=== PATIENT | female | born 1975 | race Caucasian/White ===

== ENCOUNTER 2022-08-21 14:11 | Emergency (ER) | payer BC, SELFPAY ==
[2022-08-21 14:20] VITALS: BP 169/113; PULSE 111; RESP 16; TEMP 36.8; O2SAT 96; BMI 49.6
--- NOTE | 2022-08-21 14:31 | CRLHL7_ITS ---
For Patients: As a result of the Century Cures Act, medical imaging exams and procedure reports are released immediately into your electronic medical record. You may view this report before your referring provider. If you have questions, please contact your health care provider. INDICATION: Abdominal pain. TECHNIQUE: CT abdomen and pelvis acquired with intravenous contrast, 137 mL of Isovue 370. Coronal and sagittal reformats. COMPARISON: None available. FINDINGS: The imaged lower chest appears unremarkable. Normal liver contour. No focal suspicious hepatic lesion. The portal and hepatic veins are patent. No biliary dilatation. Gallbladder surgically absent. The pancreas, spleen, and right adrenal are unremarkable. Left adrenal intermediate density 1.5 x 1.0 cm nodule (series 2, image 46). Asymmetrically delayed left renal enhancement. Left ureterovesical junction 4 mm calculus with moderate upstream hydronephrosis. No right-sided hydronephrosis or additional urinary calculi identified. Unremarkable urinary bladder. Anteverted uterus with IUD in place. The bowel appears normal in caliber and enhancement diffusely. No free air, free fluid, focal collection, or lymphadenopathy. Normal caliber abdominal aorta. No suspicious osseous lesion. IMPRESSION: 1. Left ureterovesical junction 4 mm calculus with moderate upstream hydronephrosis and delayed renal enhancement. 2. Left adrenal 1.5 cm intermediate density nodule is indeterminate but most likely an adenoma. Dictated by Jorge Luis Clark MD @ 08/21/2022 3:51:54 PM Please note that all CT scans at this facility use dose modulation, iterative reconstruction, and/or weight-based dosing when appropriate to reduce radiation dose to as low as reasonably achievable. Dictated by: Jorge Luis Clark MD @ 08/21/2022 15:52:00 (Electronically Signed)
--- NOTE | 2022-08-21 14:32 | ED.ABDPAIN ---
HPI - Abdominal Pain General Chief Complaint: Abdominal Pain Stated Complaint: Abdominal Pain Time Seen by Provider: 08/21/22 14:18 History of Present Illness HPI narrative: This 47-year-old woman comes in reporting sudden onset of severe pain in the left lower quadrant. This came on about a couple hours prior to arrival. She states that the pain comes and goes in waves but does not completely go away. She does not report any symptoms of dysuria or altered bowel function. She does not have a history of kidney stone or diverticulitis. Prior to this she has been in good health. She has had her gallbladder and appendix removed in the past. Related Data Previous Rx's Medication Instructions Recorded hydrocodone 5 mg-acetaminophen 325 1 tab PO Q4-6H PRN pain #20 tabs 08/21/22 mg tablet ketorolac 10 mg tablet 10 mg PO Q8H 5 days #15 tabs 08/21/22 ondansetron HCl 4 mg tablet 4 mg PO Q6H #15 tabs 08/21/22 Allergies Allergy/AdvReac Type Severity Reaction Status Date / Time doxycycline Allergy Severe Verified 08/21/22 14:53 Review of Systems Status of ROS Reports: 10 or more systems reviewed and unremarkable except as noted in History and below Narrative Constitutional: No fevers, no weight gain or loss. Eyes: No discharge. No vision changes. HENT: No congestion, no sore throat, no ear pain. Cardiovascular: No chest pain, no palpitations. Respiratory: No shortness of breath, no wheezes, no cough. Gastrointestinal: No vomiting, no diarrhea. Left lower quadrant abdominal pain with some nausea. Genitourinary: No dysuria, no hematuria. Musculoskeletal: Normal range of motion. Skin: No rashes, no pruritis. Neurological: No dizziness, weakness, sensory change, speech change. Endo/Heme/Allergies: No bruising or bleeding. No polydipsia. Pysch: no suicidality, no anxiety, no insomnia. All other systems reviewed and are negative. PFSH PFSH Social History Smoking Status: Never smoker How often do you have a drink containing alcohol: monthly or less AUDIT-C Alcohol total score: 1 Non-prescribed substance use: denies use service: No Exam Narrative: Exam Narrative: Constitutional: Well-developed, well-nourished, no acute distress. HEENT: Normocephalic, atraumatic. Neck: Normal range of motion. Nontender. Supple. Heart: Regular. No murmurs. Normal rate. Intact distal pulses. Lungs: Clear to auscultation. No chest discomfort. No wheezes, rhonchi, or rales. Abdomen: Normal bowel sounds. Tenderness in the left lower quadrant P No rebound tenderness. Genitalia: Deferred. Back: No midline tenderness. Normal range of motion. Extremities: Normal range of motion. No injury. Skin: Intact. No rash. Warm. No erythema or pallor. Neurologic: No altered sensation. No weakness. Alert and oriented. Psychiatric: No suicidality. No anxiety or depression. No insomnia. Nursing notes and vitals signs are reviewed. Const: Vital Signs, click to edit/add: Vital Signs - 24 hr 08/21/22 14:20 08/21/22 16:43 Temperature 98.2 F Pulse Rate [Right Pulse Oximeter] 111 H 103 H Respiratory Rate 16 20 Blood Pressure [Ri ght Upper Arm] 169/113 H 161/97 H Pulse Oximetry 96 98 Oxygen Delivery Me thod Room Air Course Vital Signs Vital signs: Initial Vital Signs Temperature 98.2 F 08/21/22 14:20 Temperature Source Temporal Artery Scan 08/21/22 14:20 Pulse Rate 111 H 08/21/22 14:20 Pulse Rhythm Regular 08/21/22 14:20 Respiratory Rate 16 08/21/22 14:20 Blood Pressure 169/113 H 08/21/22 14:20 Blood Pressure Mean 131 08/21/22 14:20 Pulse Oximetry 96 08/21/22 14:20 Oxygen Delivery Method Room Air 08/21/22 14:20 Vital Signs Temperature 98.2 F 08/21/22 14:20 Pulse Rate 111 H 08/21/22 14:20 Respiratory Rate 16 08/21/22 14:20 Blood Pressure 169/113 H 08/21/22 14:20 Pulse Oximetry 96 08/21/22 14:20 Oxygen Delivery Method Room Air 08/21/22 14:20 Temperature 98.2 F 08/21/22 14:20 Pulse Rate 103 H 08/21/22 16:43 Respiratory Rate 20 08/21/22 16:43 Blood Pressure 161/97 H 08/21/22 16:43 Pulse Oximetry 98 08/21/22 16:43 Oxygen Delivery Method Room Air 08/21/22 14:20 MDM - Abdominal Pain MDM Narrative Medical decision making narrative: This patient comes in with left lower quadrant pain that is severe. An IV was established where she received Dilaudid 0.5 mg and Zofran [address] imaging of the abdomen and pelvis shows evidence of a 4 mm stone at the left ureterovesical junction. Lab results are reassuring. Patient did have some recurrent pain and therefore also received Toradol 30 mg intravenously. I had discussion with the patient regarding matters of ureteral calculus and its management and prevention. She is okay to be discharged home and received prescriptions for Toradol, [place], and Zofran. Lab Data Labs: Lab Results 08/21/22 Range/Units 14:46 WBC 7.75 (4.50-11.00) K/uL RBC 4.72 (4.00-5.20) m/uL Hgb 14.5 (12.0-16.0) gm/dL Hct 43.0 (33.0-51.0) % MCV 91 (80-100) fL MCH 31 (26-34) pg MCHC 34 (32-36) gm/dL RDW Coeff of Yvonne 12.2 (11.5-15.5) % Plt Count 320 (140-440) K/uL Neut % (Auto) 60.9 (42.0-72.0) % Lymph % (Auto) 25.4 (20-44) % [place] % (Auto) 11.6 H (0.0-11.0) % Eos % (Auto) 1.2 (0.0-7.0) % Baso % (Auto) 0.5 (0.0-3.0) % Neut # (Auto) 4.72 (1.7-7.0) K/uL Lymph # (Auto) 1.97 (0.90-2.90) K/uL [place] # (Auto) 0.90 (0.00-0.90) K/UL Eos # (Auto) 0.09 (0.00-0.50) K/uL Baso # (Auto) 0.04 (0.00-0.30) K/uL Sodium 137 (135-149) mmol/L Potassium 3.8 (3.6-5.1) mmol/L Chloride 106 (96-114) mmol/L Carbon Dioxide 24 (20-32) mmol/L BUN 12 (5-24) mg/dL Creatinine 0.9 (0.5-1.5) mg/dL Estimated Creat Clear 65.30 Estimated GFR 80 ml/min Glucose 134 H (60-115) mg/dL Calcium 9.2 (8.4-10.6) mg/dL Imaging Data CT scan - abdomen: Radiologist's impression: 1. Left ureterovesical junction 4 mm calculus with moderate upstream hydronephrosis and delayed renal enhancement. 2. Left adrenal 1.5 cm intermediate density nodule is indeterminate but most likely an adenoma. Discharge Plan Discharge Clinical Impression: Calculus of kidney Patient Disposition: Home, Self-Care Condition: Improved Additional Instructions: Take medication as needed and indicated. Follow up with MD or return if worsening. Prescriptions: New hydrocodone-acetaminophen 5-325 mg tablet 1 tab PO Q4-6H PRN (Reason: pain) Qty: 20 0RF ondansetron HCl 4 mg tablet 4 mg PO Q6H Qty: 15 0RF ketorolac 10 mg tablet 10 mg PO Q8H 5 Days Qty: 15 0RF Follow Up/Referrals: Val Becker PA-C [Primary Care Provider] - Stand Alone Forms: [employer] Info Instructions
[2022-08-21] MEDS: ONDANSETRON 2 MG/ML inj 4 MG IVP (14:54)
[2022-08-21] MEDS: HYDROmorphone 0.5 mg/0.5 ml inj IVP (14:55)
--- NOTE | 2022-08-21 14:56 | ED.NURSE ---
stared #20 jelco as a saline lock in left wrist area and able to draw the labs and sent. given meds per eMAR and went to CT via [facility]. rated pain at 10/10 scale located in the LLQ.
[2022-08-21 14:58] LABS: Basophils Absolute Auto 0.04 K/uL (0.00-0.30); Basophils Percent Auto 0.5 % (0.0-3.0); Eosinophils Absolute Auto 0.09 K/uL (0.00-0.50); Eosinophils Percent Auto 1.2 % (0.0-7.0); Hemoglobin* 14.5 gm/dL (12.0-16.0); Immature Granulocytes Abs Auto 0.03 K/uL (0.00-0.30); Immature Granulocytes Pct Auto 0.4 %; Lymphocytes Absolute Auto 1.97 K/uL (0.90-2.90); Lymphocytes Percent Auto 25.4 % (20-44); Mean Corpuscular HGB Conc 34 gm/dL (32-36); Mean Corpuscular Hemoglobin 31 pg (26-34); Mean Corpuscular Volume 91 fL (80-100); Monocytes Percent Auto 11.6 % (0.0-11.0); Neutrophils Absolute Auto 4.72 K/uL (1.7-7.0); Neutrophils Percent Auto 60.9 % (42.0-72.0); Platelet Count* 320 K/uL (140-440); RDW Coefficient of Variation % 12.2 % (11.5-15.5); Red Blood Count 4.72 m/uL (4.00-5.20); White Blood Count* 7.75 K/uL (4.50-11.00)
[2022-08-21 15:01] LABS: Slide Review Reflex No
[2022-08-21 15:19] LABS: Chloride* 106 mmol/L (96-114)
[2022-08-21 15:20] LABS: Potassium* 3.8 mmol/L (3.6-5.1); Sodium* 137 mmol/L (135-149)
[2022-08-21 15:22] LABS: Carbon Dioxide* 24 mmol/L (20-32); Creatinine* 0.9 mg/dL (0.5-1.5); Estimated Glomerular Filt Rate 80 ml/min
[2022-08-21 15:23] LABS: Blood Urea Nitrogen* 12 mg/dL (5-24); Calcium* 9.2 mg/dL (8.4-10.6); Glucose* 134 mg/dL (60-115)
[2022-08-21] MEDS: KETOROLAC 30 MG/ML inj IVP (16:15)
[2022-08-21 16:43] VITALS: BP 161/97; PULSE 103; RESP 20; O2SAT 98
== END 2022-08-21 16:47 | disposition home or self-care (01) ==
PROVIDERS: Emergency Provider Emergency Medicine Emergency Medical Services; PCP Physician Assistant Medical
DX: N20.0 Calculus of kidney (principal)
CPT/HCPCS: 36415; 74177; 80048; 85025; 96374; 96375; 99284; 99285; J1170; J1885; J2405; Q9967